=== PATIENT | male | born 1940 | race Caucasian/White ===

== ENCOUNTER → 2016-11-27 | Outpatient (CLI) | payer OTHER, BC ==
[~2016-11-27] MED LIST: ALBUTEROL2.5 MG/31 INH; ASPIRIN EC81 M1 PO; AUGMENTIN 875875 MG PO; AVODART0.5 MG PO; CARVEDILOL12.5 MG PO; COZAAR 50 MG TA50 M1 PO; COZAAR 50 MG TA50 MG PO; DOXYCYCLINE 10100 MG PO; ELIQUIS5 MG PO; FLONASE 0.05%50 MCG NASAL; FLOVENT HFA 2220 MC1 INH; LASIX 20 MG TAB20 MG PO; LOPRESSOR50 PO; MINIPRIN81 MG PO; PACERONE 200 M200 M1 PO; PLAVIX 75 MG TA75 M1 PO; PROAIR HFA8.5 GM INH; ROBAXIN 750 MG750 M1 PO; SPIRIVA INH; TAMSULOSIN HCL0.4 M1 PO; TAMSULOSIN HCL0.4 MG PO; TOPROL XL50 MG PO; VICODIN 5-3001 EACH PO; ZOCOR40 MG PO
--- NOTE | ~2016-11-27 | 2DMMODE ---
[facility] [place] [address] 2 D/M-MODE ECHOCARDIOGRAM Name: RAHEEM COOK Room #: REG CL [facility]#: [id number] Admission: 11/27/16 Attend Phys: SAL Sena Discharge: Date of : 40 Date of Service: 11/27/16 1126 Report #: [id number] THIS REPORT FOR: //name// APPROVED REPORT Study performed: 11/27/2016 09:34:49 EXAM: Comprehensive 2D, Doppler, and color-flow Echocardiogram Patient Location: Out-Patient Blood Pressure: 132/82 mmHg HR: 75 bpm Rhythm: Irregular Other Information Study Quality: Adequate/Low parasternal window. Indications Ischemic cardiomyopathy. Hx: ICD, CAD, stent, Afib, HTN, HLP, COPD 2D Dimensions RVDd: 31.94 mm LVEF(%): 36.65 (>50%) IVSd: 9.76 (7-11mm) LVOT Diam: 21.02 (18-24mm) LVDd: 56.92 mm PWd: 9.59 (7-11mm) LVDs: 46.75 (25-40mm) Aortic Root: 34.30 mm Hicks's LVEF: 36.65 % Volumes Left Atrial Volume (Systole) Single Plane 4CH: 46.73 mL Single Plane 2CH: 66.87 mL LA ESV Index: 27.00 mL/m2 Aortic Valve AoV Peak Alvino.: 2.36 m/s AO Peak Gr.: 22.27 mmHg LVOT Max P.34 mmHg LVOT Max V: 1.44 m/s Mitral Valve E/A Ratio: 0.8 MV Decel. Time: 236.87 ms [facility] [address] [address] 2 D/M-MODE ECHOCARDIOGRAM Name: [facility] [id number] Admission: 11/27/16 Attend Phys: SAL Sena Discharge: Date of : 40 Date of Service: 11/27/16 1126 Report #: [id number] MV E Max Alvino.: 0.93 m/s MV A Alvino.: 1.23 m/s MV PHT: 68.69 ms Pulmonary Valve PV Peak Alvino.: 0.79 m/s PV Peak Gr.: 2.54 mmHg Pulmonary Vein P Vein S: 76.9 m/s P Vein D: 52.9 m/s P Vein A Dur.: 35.6 m/s Tricuspid Valve TR Peak Alvino.: 2.59 m/s RAP Estimate: 5.00 mmHg TR Peak Gr.: 26.78 mmHg RVSP: 32.00 mmHg Left Ventricle Left ventricle is borderline dilated. There is global hypokinesis of the left ventricle.Inferior wall is segmentally more hypokinetic. There is normal left ventricular wall thickness. Paradoxical septal movement. Left ventricular systolic function is moderately decreased. LVEF is 40%. Grade I - abnormal relaxation pattern. Right Ventricle The right ventricle is normal size. The right ventricular systolic function is normal. Device lead is present in the right ventricle. Atria The left atrium size is mildly dilated. The right atrium size is normal. Aortic Valve Aortic valve is mildly calcified. No aortic regurgitation is present. There is no aortic valvular stenosis. Mitral Valve The mitral valve is normal in structure. Trace mitral regurgitation. No evidence of mitral valve stenosis. Tricuspid Valve The tricuspid valve is normal in structure. There is trace tricuspid regurgitation. The right atrial pressure is estimated at 5 mmHg. There is mild pulmonary hypertension with an estimated PAP of 32mmHg. Pulmonic Valve Pulmonic valve is not well visualized. [address] [address] 2 D/M-MODE ECHOCARDIOGRAM Name: RAHEEM COOK Room #: [facility] [id number] Admission: 11/27/16 Attend Phys: SAL Sena Discharge: Date of : 40 Date of Service: 11/27/16 1126 Report #: [id number] Great Vessels The aortic root is normal in size. Ascending aorta is not well visualized. IVC is normal in size and collapses >50% with inspiration. Pericardium There is no pericardial effusion. <Conclusion> Left ventricle is borderline dilated. There is normal left ventricular wall thickness. Left ventricular systolic function is moderately decreased. There is global hypokinesis of the left ventricle.Inferior wall is segmentally more hypokinetic. LVEF is 40%. Grade I - abnormal relaxation pattern. The left atrium size is mildly dilated. There is no aortic valvular stenosis. No aortic regurgitation is present. No evidence of mitral valve stenosis. Trace mitral regurgitation. There is no pericardial effusion. <ELECTRONICALLY SIGNED> By: Ej Pettit MD, FACC 11/27/16 1126 1126 1126 Ej Pettit MD, FACC /INF
== END ==
LOC: CV 10:17
DX: I25.5 Ischemic cardiomyopathy (principal)

== ENCOUNTER → 2017-01-17 | Outpatient (CLI) | payer OTHER, BC | LOC: RAD 09:18 → CAT 09:18 | DX: I25.84 Coronary atherosclerosis due to calcified coronary lesion (principal); K80.20 Calculus of gallbladder without cholecystitis without obstruction; R91.1 Solitary pulmonary nodule ==

== ENCOUNTER 2017-03-07 13:37 | Inpatient (IN) | payer OTHER, BC ==
[~2017-03-07] VITALS: Ht 177.8 cm; Wt 104.7 kg
--- NOTE | ~2017-03-07 | HC ---
[facility] [place] [address] CONSULTATION Name: RAHEEM COOK Room #: 209-P ADM IN M.R.#: [id number] Admission: 03/07/17 Attend Phys: Jennifer Frazier Discharge: Date of : 40 Report #: [id number] THIS REPORT FOR: //name// CC: Franc Denney PRIMARY CARE PHYSICIAN: Tyler Denney MD. DIGITAL MEDIA STRATEGIST: Franc Higgins MD [facility]. REASON FOR CONSULTATION: Atrial fibrillation. HISTORY OF PRESENT ILLNESS: The patient is a 76-year-old man with a history of cardiomyopathy and he presented with severe abdominal pain and fevers to 103 to the hospital at [facility] as a transfer. A CT scan of the abdomen did not show an acute process. I am asked to see him in regards to his atrial fibrillation. He has a history of rate controlled atrial fibrillation. Clinically, he is asymptomatic for tachycardia, palpitations. He has a history of hypertension and recently has been running lower than usual blood pressures with systolic pressures in the low to mid 90s. Generally, he runs in the 130s-150s based on clinic data. He does have a history of coronary artery disease but denies chest pains and his cardiac troponin levels on serial testing are normal. He although has LV dysfunction, he has not been gaining weight or retaining fluid. He has no history of syncope or presyncope. PAST MEDICAL HISTORY: Significant for coronary artery disease, status post PCI to the circumflex. He has a history of ischemic cardiomyopathy. In 2013, his ejection fraction was 35%. In 2016, ejection fraction was 40%. He has a defibrillator. He has a history of atrial fibrillation, maintained in a rate control manner with amiodarone. He has chronic COPD. He has hypertension, mild chronic kidney disease with baseline creatinine of 1.3, obstructive sleep apnea, tobacco use prior, coronary artery bypass graft surgery remotely. HOME MEDICATIONS: Include the following: Pacerone 200 mg daily, Eliquis 2.5 mg twice daily. He is on daily Omnicef, albuterol, Atrovent, metoprolol XL 50 mg daily, nitroglycerin p.r.n., nystatin, losartan 25 mg, simvastatin 40 mg daily, Aldactone 25 mg daily, prednisone p.r.n. [address] [place] [address] CONSULTATION Name: JOYCERAHEEM DE ESTHER Room #: 209-P [facility] IN .R.#: [id number] Admission: 03/07/17 Attend Phys: Jennifer Frazier Discharge: Date of : 40 Report #: [id number] SOCIAL HISTORY: There is no tobacco or ethanol history. REVIEW OF SYSTEMS: GENERAL: Positive fevers, no chills. NEUROLOGIC: Denies slurred speech, numbness or weakness. HEMATOLOGIC: No significant anemia. GASTROINTESTINAL: Positive abdominal pain. Positive vomiting. No bleeding or black colored stools. SKIN: No rashes, no edema. CARDIOVASCULAR: No chest pain, no palpitations, no orthopnea. Positive dyspnea with exertion. PHYSICAL EXAMINATION: VITAL SIGNS: Blood pressure is 98/55, pulse is 75, respiratory rate is 20, O2 sat is 96%. GENERAL: Pleasant, obese, elderly male who is alert, oriented, no apparent distress. HEENT: EOMs intact. No facial asymmetry. NECK: Supple. No jugular venous distention. CARDIOVASCULAR: Regular. I cannot hear heart tones very well. There is no murmur. LUNGS: Diminished breath sounds. ABDOMEN: Nontender. Mildly distended. There is no rebound or guarding. EXTREMITIES: There is no peripheral edema. LABORATORY DATA: ECG demonstrates a paced rhythm with mild conduction delay. Hemoglobin is 12.0, white blood count is 20.4, platelet count is 166,000. Sodium is 139, potassium is 5.3, chloride is 106, CO2 is 26, BUN is 31, creatinine is 1.6. INR is 1.1. Chest x-ray shows no acute process. CT abdomen shows no acute process. IMPRESSION: 1. Fever. I think this is probably GI in etiology. He is on IV antibiotics with a broad-spectrum coverage as directed by our hospital colleagues. 2. Atrial fibrillation, this is paroxysmal. I would like to continue with amiodarone and anticoagulation. He is minimally symptomatic. 3. Hypotension. This could be related to volume depletion. We will hold some of his medications. 4. Ischemic cardiomyopathy, chronic systolic dysfunction. He seems clinically compensated from heart failure standpoint. 5. Status post ICD. Normal telemetry is noted and his device records indicate normal device function. [address] [address] CONSULTATION Name: RAHEEM COOK ESTHER Room #: 209-P [facility] IN M.R.#: [id number] Admission: 03/07/17 Attend Phys: Jennifer Frazier Discharge: Date of : 40 Report #: [id number] In regards to his congestive heart failure, his ejection fraction in 11/2015 revealed an EF of 40%, an overall clinical improvement. By: 1719 1825 Ej Pettit MD, FACC /nt
--- NOTE | ~2017-03-07 | EKG ---
[address] [place] [place] [address] ELECTROCARDIOGRAM REPORT Name: RAHEEM COOK Room #: 207-P ADM IN M.R.#: [id number] Admission: 03/07/17 Attend Phys: Jennifer Frazier Discharge: Date of : 40 Report #: [id number] THIS REPORT FOR: //name// [facility] ED Test Date: 2017-03-07 Test Time: 13:42:12 Pat Name: RAHEEM COOK Department: Room: 207 P Gender: M Precipitator Supervisor: [id number] : 1940 Requested By: Nori Rice Order Number: [id number] MD: Measurements Intervals Newman Rate: 90 P: NM: QRS: 95 QRSD: 106 T: 47 QT: 353 QTc: 432 Interpretive Statements Pacemaker spikes or artifacts Atrial fibrillation Right axis deviation Low voltage, precordial leads Abnormal R-wave progression, early transition Minimal ST depression, inferior leads No previous ECG available for comparison 0 [email or web address] By: 1342 1342 Epiphany EpiphanyMD /EPI
[2017-03-07 13:38] VITALS: BP 109/60
[2017-03-07 14:28] LABS: ABG SAMPLE TYPE ARTERIAL; BE(vivo) -2.5 mmol/L (-2 to +3); HCO3 20.7 mmol/L (22.0-26.0); O2(CT) 17.1 mL/dL (15.0-23.0); O2Hb 90.9 % (92.0-98.0); PCO2 31.6 mmHg (35.0-45.0); PO2 63.3 mmHg (80.0-100.0); STICK SITE R.RADIAL; pH 7.435 (7.360-7.450); sO2 93.2 % (92.0-98.0); tCO2 21.7 mmol/L (24.0-30.0)
[2017-03-07 14:30] LABS: HEMATOCRIT 35.3 % (42.0-52.0); HEMOGLOBIN 12.2 gm/dL (14.0-18.0); MCH 33.5 pg (26.0-34.0); MCHC 34.5 g/dL (28.0-37.0); MCV 97.2 fL (80.0-100.0); PLATELET COUNT 183 thou/uL (150-400); RBC 3.63 mil/uL (4.50-6.00); WBC 12.7 thou/uL (4.0-11.0)
[2017-03-07 14:32] LABS: MANUAL DIFF YES
[2017-03-07 14:34] LABS: CALCIUM 8.4 mg/dL (8.5-10.1); CREATININE 1.6 mg/dL (0.7-1.3); POTASSIUM 5.3 mmol/L (3.5-5.1)
[2017-03-07 14:53] LABS: ABSOLUTE NEUTROPHILS 11.6 thou/uL (1.4-8.2); TOTAL CELL COUNT 100
[2017-03-07 15:11] LABS: URINE BILIRUBIN NEGATIVE (Negative); URINE BLOOD NEGATIVE (Negative); URINE COLOR YELLOW; URINE GLUCOSE-RANDOM* NEGATIVE (Negative); URINE KETONES NEGATIVE (Negative); URINE NITRITE NEGATIVE (Negative); URINE PROTEIN (DIPSTICK) NEGATIVE (Negative); URINE SPECIFIC GRAVITY >= 1.030 (1.003-1.035); URINE UROBILINOGEN 0.2 E.U./dl (0.2-1.0)
[2017-03-07 15:56] LABS: ALBUMIN 3.3 g/dL (3.4-5.0); DIRECT BILIRUBIN 0.2 mg/dL (<0.1-0.3); TOTAL BILIRUBIN 1.2 mg/dL (<0.1-1.0); TOTAL PROTEIN 6.2 g/dL (6.4-8.2)
[2017-03-07 16:35] VITALS: BP 123/63
[2017-03-07 17:30] VITALS: BP 126/59
[2017-03-07 19:23] VITALS: BP 89/62
[2017-03-07 19:59] VITALS: BP 93/63
[2017-03-07 23:44] VITALS: BP 108/66
[2017-03-08 03:13] LABS: MCH 33.6 pg (26.0-34.0); MCHC 35.2 g/dL (28.0-37.0); MCV 95.3 fL (80.0-100.0); PLATELET COUNT 166 thou/uL (150-400); RBC 3.57 mil/uL (4.50-6.00); RDW 15.4 % (10.5-14.5); WBC 20.4 thou/uL (4.0-11.0)
[2017-03-08 03:14] LABS: MANUAL DIFF YES
[2017-03-08 03:30] LABS: MAGNESIUM 2.1 mg/dL (1.8-2.4); TROPONIN-I < 0.04 ng/mL (<0.04-0.07)
[2017-03-08 04:14] VITALS: BP 90/66
[2017-03-08 05:00] LABS: ABSOLUTE NEUTROPHILS 20.2 thou/uL (1.4-8.2); TOTAL CELL COUNT 100
[2017-03-08 07:30] VITALS: BP 111/61
[2017-03-08 11:20] VITALS: BP 95/58
[2017-03-08 16:05] VITALS: BP 98/55
[2017-03-08 19:32] VITALS: BP 96/63
[2017-03-08 23:21] VITALS: BP 106/70
[2017-03-09 04:22] VITALS: BP 111/60
[2017-03-09 05:01] LABS: CALCIUM 8.6 mg/dL (8.5-10.1); CREATININE 1.3 mg/dL (0.7-1.3); POTASSIUM 4.6 mmol/L (3.5-5.1)
[2017-03-09 05:11] LABS: HEMATOCRIT 32.3 % (42.0-52.0); HEMOGLOBIN 11.2 gm/dL (14.0-18.0); MCH 33.6 pg (26.0-34.0); MCHC 34.7 g/dL (28.0-37.0); MCV 96.8 fL (80.0-100.0); RBC 3.34 mil/uL (4.50-6.00); RDW 15.6 % (10.5-14.5); WBC 17.4 thou/uL (4.0-11.0)
[2017-03-09 07:40] VITALS: BP 110/55
[2017-03-09 11:15] VITALS: BP 100/66
[2017-03-09 16:00] VITALS: BP 130/85
[2017-03-09 19:55] VITALS: BP 119/60
[2017-03-10 02:01] LABS: HEMATOCRIT 31.6 % (42.0-52.0); HEMOGLOBIN 11.2 gm/dL (14.0-18.0); MCH 34.1 pg (26.0-34.0); MCHC 35.5 g/dL (28.0-37.0); MCV 95.9 fL (80.0-100.0); RBC 3.3 mil/uL (4.50-6.00); RDW 15.8 % (10.5-14.5); WBC 8.4 thou/uL (4.0-11.0)
[2017-03-10 03:53] VITALS: BP 131/75
[2017-03-10] MEDS ORDERED: AUGMENTIN 875875 MG PO (08:58)
[2017-03-10 10:53] VITALS: BP 140/87
== END 2017-03-10 11:14 | disposition home or self-care (01) | DRG 871 ==
LOC: ER 13:37 → EROBS 16:22 → 2N 16:22
PROVIDERS: Emergency Medicine; Hospitalist
DX: A41.9 Sepsis, unspecified organism (principal); N17.0 Acute kidney failure with tubular necrosis; I13.0 Hypertensive heart and chronic kidney disease with heart failure and stage 1 through stage 4 chronic kidney disease, or unspecified chronic kidney disease; E86.0 Dehydration; I25.10 Atherosclerotic heart disease of native coronary artery without angina pectoris; I25.5 Ischemic cardiomyopathy; J44.9 Chronic obstructive pulmonary disease, unspecified; N18.9 Chronic kidney disease, unspecified; G47.33 Obstructive sleep apnea (adult) (pediatric); I48.0 Paroxysmal atrial fibrillation; E78.5 Hyperlipidemia, unspecified; E78.00 Pure hypercholesterolemia, unspecified; I50.9 Heart failure, unspecified; Z95.5 Presence of coronary angioplasty implant and graft; Z95.810 Presence of automatic (implantable) cardiac defibrillator; Z95.1 Presence of aortocoronary bypass graft; I25.2 Old myocardial infarction; Z87.891 Personal history of nicotine dependence; Z86.14 Personal history of Methicillin resistant Staphylococcus aureus infection
CPT/HCPCS: 10081; 27001

== ENCOUNTER → 2019-08-25 | Outpatient (CLI) | payer OTHER, BC ==
[~2019-08-25] MED LIST changes: +ASPIR 8181 MG PO; +BEVESPI AEROS10.7 GM INH; +CHILDREN'S ASPI81 M1 PO; +COZAAR 25 MG TA25 M1 PO; +DORYX MPC120 MG PO; +EFFIENT10 MG PO; +FLOMAX0.4 MG PO; +IPRAT-ALBUT 0.5-3 ML INH; +NITROGLYCERIN0.4 MG SUBLING; +PREDNISONE 20 M20 MG PO; +PROAIR RESPICL90 MCG INH; +STIOLTO RESPIMAT4 GM INH; +TOPROL XL25 MG PO
== END ==
LOC: SJCVC 13:27
DX: Z45.02 Encounter for adjustment and management of automatic implantable cardiac defibrillator (principal); I45.10 Unspecified right bundle-branch block; I49.1 Atrial premature depolarization; I48.0 Paroxysmal atrial fibrillation; I47.2 Ventricular tachycardia; J44.9 Chronic obstructive pulmonary disease, unspecified; E78.00 Pure hypercholesterolemia, unspecified; G47.33 Obstructive sleep apnea (adult) (pediatric); Z79.899 Other long term (current) drug therapy; Z87.891 Personal history of nicotine dependence

== ENCOUNTER → 2019-09-07 | Outpatient (CLI) | payer OTHER, BC | LOC: SJCVC 12:48 | DX: I45.10 Unspecified right bundle-branch block (principal); I47.2 Ventricular tachycardia; I25.5 Ischemic cardiomyopathy; Z95.810 Presence of automatic (implantable) cardiac defibrillator ==

== ENCOUNTER → 2019-09-16 | Outpatient (CLI) | payer OTHER, BC | LOC: SJCVC 15:36 | DX: Z45.02 Encounter for adjustment and management of automatic implantable cardiac defibrillator (principal); I25.5 Ischemic cardiomyopathy; I47.2 Ventricular tachycardia; I48.91 Unspecified atrial fibrillation; J44.9 Chronic obstructive pulmonary disease, unspecified; E78.00 Pure hypercholesterolemia, unspecified; I11.0 Hypertensive heart disease with heart failure; I50.9 Heart failure, unspecified; G47.30 Sleep apnea, unspecified; Z95.1 Presence of aortocoronary bypass graft; Z79.899 Other long term (current) drug therapy; Z87.891 Personal history of nicotine dependence ==

== ENCOUNTER → 2019-12-08 | Outpatient (CLI) | payer OTHER, BC | LOC: SJCVC 13:49 | DX: Z45.02 Encounter for adjustment and management of automatic implantable cardiac defibrillator (principal); I47.2 Ventricular tachycardia; I11.0 Hypertensive heart disease with heart failure; I50.20 Unspecified systolic (congestive) heart failure; I25.5 Ischemic cardiomyopathy; I48.0 Paroxysmal atrial fibrillation; J44.9 Chronic obstructive pulmonary disease, unspecified; E66.9 Obesity, unspecified; I10 Essential (primary) hypertension; I48.91 Unspecified atrial fibrillation; Z82.49 Family history of ischemic heart disease and other diseases of the circulatory system; Z79.82 Long term (current) use of aspirin; Z79.899 Other long term (current) drug therapy; Z95.810 Presence of automatic (implantable) cardiac defibrillator; Z87.891 Personal history of nicotine dependence ==

== ENCOUNTER → 2019-12-24 | Outpatient (CLI) | payer OTHER, BC | LOC: RAD 13:07 | DX: J44.9 Chronic obstructive pulmonary disease, unspecified (principal) ==

== ENCOUNTER → 2020-09-01 | Outpatient (CLI) | payer OTHER, BC | LOC: SJCVC 12:20 | PROVIDERS: ATTEND Internal Medicine Cardiovascular Disease | DX: R94.31 Abnormal electrocardiogram [ECG] [EKG] (principal); I47.2 Ventricular tachycardia; I49.49 Other premature depolarization; I45.10 Unspecified right bundle-branch block; I25.5 Ischemic cardiomyopathy; I25.110 Atherosclerotic heart disease of native coronary artery with unstable angina pectoris; I48.0 Paroxysmal atrial fibrillation; E78.5 Hyperlipidemia, unspecified; E66.9 Obesity, unspecified; J44.9 Chronic obstructive pulmonary disease, unspecified; G47.33 Obstructive sleep apnea (adult) (pediatric); I11.0 Hypertensive heart disease with heart failure; I50.22 Chronic systolic (congestive) heart failure; Z95.1 Presence of aortocoronary bypass graft; Z95.810 Presence of automatic (implantable) cardiac defibrillator; Z98.890 Other specified postprocedural states; Z88.8 Allergy status to other drugs, medicaments and biological substances; Z79.82 Long term (current) use of aspirin; Z79.899 Other long term (current) drug therapy; Z87.891 Personal history of nicotine dependence; Z82.49 Family history of ischemic heart disease and other diseases of the circulatory system ==

== ENCOUNTER → 2020-11-30 | Outpatient (CLI) | payer OTHER, BC ==
[~2020-11-30] MED LIST changes: +K-DUR10 MEQ PO; +LASIX 40 MG TAB40 M1 PO; +MEXILETINE 150150 MG PO; +NITROSTAT0.4 M1 SL; +PREDNISONE 10 M10 MG PO; +XOPENEX0.63 MG/3 INH
== END ==
LOC: SJCVC 14:02
PROVIDERS: ATTEND Internal Medicine Cardiovascular Disease
DX: R94.31 Abnormal electrocardiogram [ECG] [EKG] (principal); I47.2 Ventricular tachycardia; I25.10 Atherosclerotic heart disease of native coronary artery without angina pectoris; I25.5 Ischemic cardiomyopathy; I48.91 Unspecified atrial fibrillation; E78.5 Hyperlipidemia, unspecified; E66.9 Obesity, unspecified; J44.9 Chronic obstructive pulmonary disease, unspecified; G47.33 Obstructive sleep apnea (adult) (pediatric); I11.0 Hypertensive heart disease with heart failure; I50.20 Unspecified systolic (congestive) heart failure; Z72.0 Tobacco use; Z95.810 Presence of automatic (implantable) cardiac defibrillator; Z95.1 Presence of aortocoronary bypass graft; Z98.890 Other specified postprocedural states; Z88.8 Allergy status to other drugs, medicaments and biological substances; Z79.899 Other long term (current) drug therapy; Z82.49 Family history of ischemic heart disease and other diseases of the circulatory system; W19.XXXA Unspecified fall, initial encounter

== ENCOUNTER → 2021-05-30 | Outpatient (CLI) | payer OTHER, BC | LOC: SJCVC 09:06 | PROVIDERS: ATTEND Internal Medicine Cardiovascular Disease | DX: R94.31 Abnormal electrocardiogram [ECG] [EKG] (principal); R00.1 Bradycardia, unspecified; I25.5 Ischemic cardiomyopathy; I47.2 Ventricular tachycardia; I48.0 Paroxysmal atrial fibrillation; J44.9 Chronic obstructive pulmonary disease, unspecified; E78.00 Pure hypercholesterolemia, unspecified; Z95.810 Presence of automatic (implantable) cardiac defibrillator; Z88.1 Allergy status to other antibiotic agents; Z79.899 Other long term (current) drug therapy; Z72.89 Other problems related to lifestyle; Z87.891 Personal history of nicotine dependence ==